=== PATIENT | female | born 1945 | race Caucasian/White ===

== ENCOUNTER 2021-08-10 09:07 | Outpatient (CLI) | payer MEDICARE | END 2021-08-10 09:08 | disposition home or self-care (01) | LOC: CSHMAMMO 09:07 | PROVIDERS: ATTEND Family Medicine | DX: R92.1 Mammographic calcification found on diagnostic imaging of breast (principal) | CPT/HCPCS: 77066; G0279 ==

== ENCOUNTER 2021-11-23 14:11 | Outpatient (CLI) | payer MEDICARE | END 2021-11-23 14:12 | disposition home or self-care (01) | LOC: CSHMAMMO 14:11 | PROVIDERS: ATTEND Internal Medicine Hematology & Oncology | DX: Z13.820 Encounter for screening for osteoporosis (principal); Z78.0 Asymptomatic menopausal state | CPT/HCPCS: 77080 ==

== ENCOUNTER 2022-05-20 13:19 | Outpatient (CLI) | payer MEDICARE | END 2022-05-20 13:20 | disposition home or self-care (01) | LOC: CSHRAD 13:19 | PROVIDERS: ATTEND Orthopaedic Surgery | DX: M41.9 Scoliosis, unspecified (principal) | CPT/HCPCS: 72081 ==

== ENCOUNTER 2023-01-27 10:28 | Outpatient (CLI) | payer MEDICARE | END 2023-01-27 10:29 | disposition home or self-care (01) | LOC: CSHMAMMO 10:28 | PROVIDERS: ATTEND Internal Medicine Hematology & Oncology | DX: Z13.820 Encounter for screening for osteoporosis (principal); C50.811 Malignant neoplasm of overlapping sites of right female breast; T38.6X5A Adverse effect of antigonadotrophins, antiestrogens, antiandrogens, not elsewhere classified, initial encounter | CPT/HCPCS: 77080 ==

== ENCOUNTER 2023-10-07 09:27 | Outpatient (CLI) | payer MEDICARE | END 2023-10-07 09:28 | disposition home or self-care (01) | LOC: CSHMAMMO 09:27 | PROVIDERS: ATTEND Specialist | DX: Z08 Encounter for follow-up examination after completed treatment for malignant neoplasm (principal); Z85.3 Personal history of malignant neoplasm of breast | CPT/HCPCS: 77066; G0279 ==

== ENCOUNTER 2025-01-02 08:42 | Outpatient (CLI) | payer MEDICARE | END 2025-01-02 08:43 | disposition home or self-care (01) | LOC: CSHMAMMO 08:42 | PROVIDERS: ATTEND Internal Medicine Hematology & Oncology | DX: C50.811 Malignant neoplasm of overlapping sites of right female breast (principal); T38.6X5A Adverse effect of antigonadotrophins, antiestrogens, antiandrogens, not elsewhere classified, initial encounter | CPT/HCPCS: 77080 ==

== ENCOUNTER 2025-04-30 06:56 | Emergency (ER) | payer MEDICARE ==
[2025-04-30] MEDS ORDERED: Heparin 10,000 UNITS/ 10 ML VIAL ONE (07:45)
[2025-04-30 07:59] LABS: Hematocrit 46.0 % (34.9-44.5); Hemoglobin 14.1 g/dL (12.0-15.5); Mean Corpuscular Hemoglobin 27.9 pg (27.0-33.0); Mean Corpuscular Volume 90.9 fL (81.6-98.3); Platelet Count 219 10x3/uL (150-450); Red Blood Cell (RBC) Count 5.06 10x6/uL (3.90-5.03); White Blood Cell (WBC) Count 17.11 10x3/uL (3.5-10.5)
[2025-04-30 08:17] LABS: ALT (SGPT) 13 U/L (Less than 34); AST (SGOT) 25 U/L (11-34); Albumin 4.2 g/dL (3.1-4.5); Alkaline Phosphatase 87 U/L (40-110); Anion Gap 22 mmol/L (10-20); BUN (Urea Nitrogen) 32 mg/dL (9.8-20.1); Bilirubin, Total 0.7 mg/dL (0.3-1.2); Calc. Creatinine Clearance 0 mL/min (70-130); Calcium 10.0 mg/dL (7.8-10.44); Carbon Dioxide 12 mmol/L (23-31); Chloride 107 mmol/L (98-107); Globulin 3.8 g/dL (2.4-3.5); Glucose 197 mg/dL (83-110); Potassium 4.6 mmol/L (3.5-5.1); Sodium 136 mmol/L (136-145)
[2025-04-30 08:45] LABS: MDiff Complete? YES; Platelet Adequacy Comment Appears Adequate; RBC Morphology Within Normal Limits
[2025-04-30 08:47] LABS: INR-International Normal Ratio 1.1; PTT 88.4 sec (22.0-33.0); Prothrombin Time 11.7 sec (9.5-12.1)
[2025-04-30] MEDS ORDERED: cefTRIAXone (ROCEPHIN) 2 GM VIAL ONE (14:09)
[2025-04-30 14:23] LABS: Specific Gravity, Urine 1.030 (1.005-1.030)
[2025-04-30 14:26] LABS: Glucose, Urine (Dipstick) Unable to Interpret mg/dL (Negative); Protein, Urine (Dipstick) Unable to Interpret mg/dl (Neg-Trace)
[2025-04-30 14:27] LABS: Leukocyte Unable to Interpret (Negative)
[2025-04-30 14:47] LABS: Bacteria/HPF 3+ HPF (None Seen); CAUTI Indications for Culture Pelvic or flank pain; Mucous/LPF 2+ LPF (<2+); RBC/HPF 0-3 HPF (0-3)
[2025-04-30 14:48] LABS: Urine Culture Reflex No No
== END 2025-04-30 16:29 | disposition short-term general hospital (02) ==
LOC: CSHERS 06:56
DX: I82.412 Acute embolism and thrombosis of left femoral vein (principal); E87.20 Acidosis, unspecified; D72.829 Elevated white blood cell count, unspecified; Z87.891 Personal history of nicotine dependence
CPT/HCPCS: 80053; 81001; 83605; 85025; 85610; 85730 ×2; 87086; 93005; 93971; J0696; J1644 ×2; 36415; 96374; 96375